=== PATIENT | female | born 1990 | race Caucasian/White ===

== ENCOUNTER 2020-05-17 20:59 | Emergency (ER) | payer SELFPAY ==
[2020-05-17 21:10] VITALS: BP 135/90; PULSE 69; RESP 14; TEMP 37; O2SAT 98
--- NOTE | 2020-05-17 21:11 | ED.GENADUL_ITS ---
Discharge Plan Disposition Patient Disposition: HOME Condition: Good Discharge Details Chief Complaint: DentalOral Clinical Impression: Dental infection Primary Care Provider: None,None ED Provider: Jose Bustamante Meds and New Rx's Prescriptions: New HurriCaine 20 % Aerosol,Mina 1 applic topical DIRECTED Qty: 57 RF: 0 amoxicillin-pot clavulanate 875-125 mg tablet 1 tab PO BID Qty: 20 RF: 0 Continued multivitamin [Daily Multi-Vitamin] 1 EACH tablet 1 tab PO DAILY RF: 0 Changed ibuprofen 200 MG capsule 600 mg PO Q8H PRNQty: 0 RF: 0 acetaminophen [Mapap Extra Strength] 500 MG tablet 1,000 mg PO TID-QID PRN (Reason: Pain) 5 Days Qty: 60 RF: 0 Discharge Instructions Instructions: Dental Abscess (ED) Additional Instructions: Take antibiotic as directed. Alternate acetaminophen and ibuprofen as we discussed. Use the Hurricaine as directed to help with pain. Return to ED for fever, difficulty breathing, inability to swallow, worsening pain/swelling/redness of face. Follow-up with dentist for definitive treatment. Medical Decision Making Patient with dental infection and adjacent buccal cellulitis. No drainable a bscess appreciated intraorally. We will continue ibuprofen and acetaminophen for pain. Will start Augmentin. We will also have her use benzocaine gel to the gingival area to help with discomfort. She will need definitive care by dentistry. Return to ED for difficulty breathing, inability to swallow, fever, worsening facial swelling and pain. HPI General Date/Time Provider Initiated Documentation: 05/17/20 21:10 . Limitations to Documentation: no limitations . Information obtained by: patient and RN notes reviewed . HPI Narrative: Patient presents to ED with dental pain and facial swelling. Patient has known dental problems but has not had the insurance to be able to get it addressed. She reports toothache for the last couple of days with increased pain and no facial swelling today. She reports no fever. She reports no difficulty swallowing or breathing. She has been taking Tylenol and ibuprofen for pain. Related Data Home Medications Medication Instructions Recorded Confirmed multivitamin [Daily Multi-Vitamin] 1 tab PO DAILY 04/22/15 05/17/20 acetaminophen [Mapap Extra 1,000 mg PO TID-QID PRN 5 Days #60 05/17/20 05/17/20 Strength] tab amoxicillin-pot clavulanate 1 tab PO BID #20 tab 07/10/20 benzocaine [HurriCaine] 1 applic TOPICAL DIRECTED #57 gm 05/17/20 ibuprofen 600 mg PO Q8H PRN #0 cap 05/17/20 05/17/20 Previous Rx's Medication Instructions Recorded acetaminophen [Mapap Extra 1,000 mg PO TID-QID PRN 5 Days #60 05/17/20 Strength] tab amoxicillin-pot clavulanate 1 tab PO BID #20 tab 05/17/20 benzocaine [HurriCaine] 1 applic TOPICAL DIRECTED #57 gm 05/17/20 ibuprofen 600 mg PO Q8H PRN #0 cap 05/17/20 Allergies Allergy/AdvReac Type Severity Reaction Status Date / Time clindamycin AdvReac vomiting Unverified 05/17/20 21:14 Review of Systems Narrative: As documented in HPI otherwise negative as below. Const: no fever, chills, weakness Resp: no cough, SOB, pleuritic pain CV: no CP, diaphoresis, edema, syncope GI: no abdominal pain, nausea, vomiting, diarrhea Neuro: no headache, numbness, focal weakness, confusion [facility] Medical History No active medical problems (Acute) Surgical History S/P tubal ligation (Chronic) Social History Smoking/Tobacco Use Status: Current every day Tobacco Type: cigarettes Alcohol Intake: current Alcohol Intake frequency: a few times a month Drug use: Never Substance use type: does not use Do you feel safe at home: Yes Do you feel safe in your relationship?: Yes Exam Narrative Exam Narrative: Vitals: Afebrile with normal vitals and normal room air pulse ox. Const: WDWN female in NAD. HEENT: NC/AT. Left sided mandibular swelling/tenderness. No erythema or fluctuance. Significant decay of all molars with dental fractures present. No gingival abscess. No tongue or floor of mouth swelling/tenderness. Eyes: Normal conjunctiva and sclera. Neck: Supple. Trachea midline. Lungs: Normal respiratory effort. Neuro: A+O x 3. Normal speech, mentation, gait. Cranial nerves II - XII grossly intact. No gross motor or sensory deficit. Skin: Warm and dry without erythema.
[2020-05-17] MEDS: Amox. 875/Clav. 125, 2 TABS/BTL 1 TAB PO (21:37)
[2020-05-17] MEDS: Benzocaine 20% Gel 30 GM JAR MM (21:37)
== END 2020-05-17 21:35 | disposition home or self-care (01) ==
LOC: ER 22:06
PROVIDERS: Emergency Provider Emergency Medicine
DX: R22.0 Localized swelling, mass and lump, head (principal); K04.7 Periapical abscess without sinus; K12.2 Cellulitis and abscess of mouth
CPT/HCPCS: 99283

== ENCOUNTER 2021-01-28 16:24 | Outpatient (REF) | payer BC, SELFPAY ==
[2021-01-28 22:01] LABS: FREE T4 0.99 ng/dL (0.76-1.46); Glucose 96 mg/dL (74-106); Hemoglobin A1C 4.7 % (<5.7)
== END 2021-01-28 16:25 | disposition home or self-care (01) ==
LOC: NCHCN 16:24
PROVIDERS: PCP Internal Medicine; Visit Provider Internal Medicine
DX: E03.9 Hypothyroidism, unspecified (principal); Z13.1 Encounter for screening for diabetes mellitus
CPT/HCPCS: 82947; 83036; 84439; 84443

== ENCOUNTER 2021-08-13 15:57 | Emergency (ER) | payer BC, SELFPAY ==
[2021-08-13 16:01] VITALS: BP 134/94; PULSE 82; RESP 20; TEMP 37.3; O2SAT 100
--- NOTE | 2021-08-13 16:15 | ED.GENADUL_ITS ---
Discharge Plan Disposition Patient Disposition: HOME Condition: Good Discharge Details Clinical Impression: Dental infection Primary Care Provider: Jared Samuel ED Provider: Kristin Mcdonald Home Meds and New Rx's Prescriptions: New amoxicillin-pot clavulanate [Augmentin] 875-125 mg tablet 1 tab PO BID Qty: 14 RF: 0 Continued multivitamin [Daily Multi-Vitamin] 1 EACH tablet 1 tab PO DAILY RF: 0 ibuprofen 200 MG capsule 600 mg PO Q8H PRNQty: 0 RF: 0 acetaminophen [Mapap Extra Strength] 500 MG tablet 1,000 mg PO TID-QID PRN (Reason: Pain) 5 Days Qty: 60 RF: 0 albuterol sulfate 90 mcg/actuation HFA aerosol inhaler 1 - 2 puff INHALATION PRN PRNRF: 0 budesonide-formoterol [Symbicort] 80-4.5 mcg/actuation HFA aerosol inhaler 1 puff INHALATION BID RF: 0 Discharge Instructions Instructions: Dental Abscess (ED) Additional Instructions: As discussed, I do not see definitive abscess. However, you do have evidence to suggest dental infection and localized swelling. Please encourage hydration. Tylenol and/or ibuprofen as needed for discomfort. Please take the antibiotics as prescribed. Even if symptoms improve, please take the entire course. Please keep upcoming appointment with hand for definitive care. If you develop fever/chills, increased swelling, difficulty breathing shortness of breath, difficulty swallowing or other new/worsening symptoms to seek care urgently once again. Please take probiotic while on the antibiotic. Referrals: Jared Samuel MD [Primary Care Provider] - Discharge Data Discharge Date/Time-TO BE ENTERED AT DEPARTURE: 08/13/21 16:43 Medical Decision Making Patient is a pleasant 31-year-old female presented with chief complaint of left lower dental pain. States the pain began yesterday. Noted swelling when she woke this morning. States she has been having difficulty with infection in this area. Has a dentist appointment in 3 weeks. She denies any fevers or chills. States that she has been on antibiotics multiple times for same thing. Denies status. Denies any headache. On exam, patient appears nontoxic. She does have swelling externally visualized to the left lower jawline. He generally, she did swelling along the buccal side. No lingual sided swelling. No swelling under the tongue. Posterior oropharynx is normal. No lymphadenopathy. Patient does not appear systemically ill. She is afebrile. Patient I discussed treatment options. She is fairly swollen. Questioning if she may be developing an abscess although I am not appreciating any significant area of fluctuance she does have a fairly substantial amount of swelling near the #21 2. She states that she has developed abscesses in the past. She would prefer attempted aspiration see if there was any pocket of fluid that may be opened. Patient I discussed risk/benefits as well as expected procedural steps associated with this. Procedure note: Area of maximal swelling was anesthetized topically with Hurricaine gel. This provided sufficient anesthesia. The area of maximal swelling was then aspirated with an 18-gauge needle. No purulent discharge was removed. Plan to treat for dental infection. He has done well with Augmentin in the past on chart review. I did encourage that she take a probiotic while on the antibiotic. Encourage hydration. Tylenol and ibuprofen as needed for discomfort. Return precautions were discussed. All of her questions and concerns were tested she is in agreement with plan. She will keep her upcoming appointment with dentist. HPI General Mode of arrival: ambulatory . Date/Time Provider Initiated Documentation: 08/13/21 16:06 . Limitations to Documentation: no limitations . Information obtained by: patient, RN notes reviewed and old records reviewed . History of Present Illness 31 year old F presents to the emergency department with the chief complaint of left lowerdental pain, described as mild, with intensity rated at 3. Quality is described as aching, and is localized to the mouth. Patient reports no radiation. Patient started experiencing this day(s) (1) and it has been constant. No relieving factors improve symptom(s), No exacerbating factors reported . Patient notes no other symptoms.; denies fever/chills, loss of appetite, nausea/vomiting and shortness of breath. Patient did receive the following treatments prior to arrival, none Related Data Home Medications Medication Instructions Recorded Confirmed multivitamin [Daily Multi-Vitamin] 1 tab PO DAILY 04/22/15 08/13/21 acetaminophen [Mapap Extra 1,000 mg PO TID-QID PRN 5 Days #60 05/17/20 08/13/21 Strength] tab ibuprofen 600 mg PO Q8H PRN #0 cap 05/17/20 08/13/21 albuterol sulfate 1 - 2 puff INHALATION PRN PRN 08/13/21 08/13/21 amoxicillin-pot clavulanate 1 tab PO BID #14 tab 08/13/21 [Augmentin] budesonide-formoterol [Symbicort] 1 puff INHALATION BID 08/13/21 08/13/21 Previous Rx's Medication Instructions Recorded acetaminophen [Mapap Extra 1,000 mg PO TID-QID PRN 5 Days #60 05/17/20 Strength] tab ibuprofen 600 mg PO Q8H PRN #0 cap 05/17/20 amoxicillin-pot clavulanate 1 tab PO BID #14 tab 08/13/21 [Augmentin] Allergies Allergy/AdvReac Type Severity Reaction Status Date / Time clindamycin AdvReac vomiting Unverified 08/13/21 16:04 General Stated Complaint: DentalOral ESA: 4 Review of Systems Constitutional Constitutional: Reports as per HPI, Denies chills, Denies fatigue, Denies fever(s) and Denies headache(s) Eyes Eyes: Denies change in vision and Denies irritation ENT Ears, Nose, Mouth, and Throat: Reports as per HPI, Reports dental pain, Denies dysphagia, Denies dizziness, Denies dry mouth, Denies ear discharge, Denies otalgia, Reports facial pain, Denies headache(s), Denies hoarseness, Denies lip swelling, Denies odynophagia and Denies sore throat Cardiovascular Cardiovascular: Denies dyspnea Respiratory Respiratory: Reports as per HPI, Denies cough and Denies dyspnea Gastrointestinal Gastrointestinal: Reports as per HPI, Denies dysphagia and Denies odynophagia Integumentary/Breasts Skin/Breast: Reports as per HPI, Denies erythema, Denies rash and Denies skin pain Neurologic Neurologic: Reports as per HPI, Denies dizziness and Denies headache(s) Endocrine Endocrine: Denies fatigue Allergic/Immunologic Allergic/Immunologic: Denies lip swelling PFSH Medical History No active medical problems Surgical History S/P tubal ligation Social History Smoking/Tobacco Use Status: Current every day Tobacco Type: cigarettes Smoking risk assessment performed?: Yes Alcohol Intake: current Alcohol Intake frequency: a few times a month Drug use: Daily Substance use type: marijuana Do you feel safe at home: Yes Do you feel safe in your relationship?: Yes Exam Const General: cooperative, healthy appearing, comfortable, no acute distress, well developed and well groomed Nutritional Appearance: average body habitus and well nourished Orientation: alert and awake [facility] Head: normal to inspection, normocephalic and atraumatic Ears: hearing grossly normal bilaterally, external ears normal and TM's normal bilaterally General nose exam: external nose normal and nares normal Face and sinus: sinuses nontender and face asymmetric Face images: 1. Area of swelling and discomfort. Poor dentition in this region. Not appreciate any focal area fluctuance. Appears generally swollen. No pain along the lingual side. Significant discomfort on the buccal side with palpation. No external discoloration, erythema or warmth. No lymphadenopathy. Patient does not appear systemically unwell. No swelling under the tongue. Posterior oropharynx is normal. Throat: posterior oropharynx normal, tonsils normal and uvula midline Eyes General: appearance normal, both eyes and all related structures Neck Neck: normal visual inspection, full ROM, no lymphadenopathy, supple and no anterior neck swelling Resp Effort & Inspection: normal respiratory effort, able to speak in complete sentences and no respiratory distress Auscultation: clear to auscultation bilaterally, no rales, no rhonchi and no wheezes Cardio Rate: regular rate Rhythm: regular rhythm Heart Sounds: S1 normal and S2 normal Skin General skin exam: no rashes or lesions noted Trauma: no lacerations or abrasions Neuro General: patient alert and patient awake Cognition: normal cognition Speech: speech normal Gait: normal gait Psych Appearance: grossly normal and well kempt Mental Status: mental status grossly normal Speech and Movement: speech and movement normal Course Vital Signs Vital signs: Vital Signs Temperature 37.3 C 08/13/21 16:01 Pulse 82 08/13/21 16:01 Respiratory Rate 20 08/13/21 16:01 Blood Pressure 134/94 H 08/13/21 16:01 Pulse Oximetry 100 08/13/21 16:01 Temperature 37.3 C 08/13/21 16:01 Temperature Source Skin 08/13/21 16:01 Pulse 82 08/13/21 16:01 Respiratory Rate 20 08/13/21 16:01 Respiratory Effort Non-Labored 08/13/21 16:06 Blood Pressure 134/94 H 08/13/21 16:01 Blood Pressure Position Sitting 08/13/21 16:01 Pulse Oximetry 100 08/13/21 16:01 Oxygen Delivery Method Room Air 08/13/21 16:01 Oxygen Flow Rate 0 08/13/21 16:01 Pain Level 3 08/13/21 16:01
== END 2021-08-13 16:43 | disposition home or self-care (01) ==
LOC: ER 16:41
PROVIDERS: Emergency Provider Physician Assistant; PCP Internal Medicine
DX: K04.7 Periapical abscess without sinus (principal)
CPT/HCPCS: 99283

== ENCOUNTER 2021-12-22 11:50 | Outpatient (REF) | payer BC, SELFPAY ==
--- NOTE | 2021-12-22 11:15 | PAPFT_PTH ---
PATIENT: Lesa Matt LOC: [facility] U#:[id number] AGE/SX: 31/F ROOM: RE12/22/[address]: Albaro Palmer : 1990 BED: DIS: 12/22/2021 SPEC #: [id number] RECD: 12/22/21 18:17 STATUS: SIM REQ #: [id number] TALISHA: 12/22/21 11:[address]: Albaro Palmer DEPT: [facility] Cytology RECD BY: Dacia Chahal ENTERED: 12/22/21 18:17 SP TYPE: PAPFT OTHR DR: Jared Samuel Tissues: 1 - CX/ENDOCX FOR PAP SMEARS Procedures: PAP THIN PREP/UVM Screening HPV DNA PROBE Comments: [id number]
== END 2021-12-22 11:51 | disposition home or self-care (01) ==
LOC: NCHCN 11:50
PROVIDERS: PCP Internal Medicine; Visit Provider Family Medicine
DX: Z12.4 Encounter for screening for malignant neoplasm of cervix (principal); Z11.51 Encounter for screening for human papillomavirus (HPV)
CPT/HCPCS: 88142; 87624

== ENCOUNTER 2024-07-04 12:57 | Emergency (ER) | payer BC, SELFPAY ==
[2024-07-04 13:02] VITALS: BP 122/75; PULSE 93; RESP 12; TEMP 38.9; O2SAT 96
--- NOTE | 2024-07-04 13:17 | ED.GENADUL_ITS ---
Discharge Plan Disposition Patient Disposition: Home Condition: Stable Discharge Details Clinical Impression: Streptococcal sore throat Primary Care Provider: Jared Samuel ED Provider: Becca Stack Home Meds and New Rx's Prescriptions: New penicillin V potassium 500 mg tablet 500 mg PO BID 10 Days Qty: 20 0RF Rx Instructions: Take one tablet by mouth twice daily x 10 days Continued multivitamin [Daily Multi-Vitamin] 1 EACH tablet 1 tab PO DAILY ibuprofen 200 MG capsule 600 mg PO Q8H PRNQty: 0 0RF acetaminophen [Mapap Extra Strength] 500 MG tablet 1,000 mg PO TID-QID PRN (Reason: Pain) 5 Days Qty: 60 0RF albuterol sulfate 90 mcg/actuation HFA aerosol inhaler 1 - 2 puff INHALATION PRN PRN Patient Comments: INHALE 1 TO 2 PUFFS EVERY 4 TO 6 HOURS NEEDED FOR WHEEZING budesonide-formoterol [Symbicort] 80-4.5 mcg/actuation HFA aerosol inhaler 1 puff INHALATION BID Patient Comments: INHALE 1 PUFF TWO TIMES A DAY Discharge Instructions Instructions: Strep Throat ED Additional Instructions: Positive for strep throat. Gargle with warm salt water up to 3 times daily for next 5 days. Take the antibiotic as prescribed twice daily with yogurt or probiotic. Please take Tylenol or Ibuprofen with food every 4-6 hours as needed for pain and swelling. Increase oral fluids. Thank you Stand Alone Forms: Work Release Referrals: Jared Samuel MD [Primary Care Provider] - 5 days Discharge Data Discharge Date/Time-TO BE ENTERED AT DEPARTURE: 07/04/24 13:26 HPI General Mode of arrival: ambulatory . Date/Time Provider Initiated Documentation: 07/04/24 13:09 . Limitations to Documentation: no limitations . Information obtained by: patient, RN notes reviewed and old records reviewed . HPI Narrative: 34 year old female presents to the ER with cc of sore throat which began yesterday. Associated with ear pain and fever. No significant PMHX. Related Data Home Medications ?Medication ?Instructions ?Recorded ?Confirmed multivitamin (Daily Multi-Vitamin 1 tab PO DAILY 04/22/15 07/04/24 tablet) acetaminophen 500 mg tablet (Mapap 1,000 mg (2 x 500 mg) PO TID-QID 05/17/20 07/04/24 Extra Strength) PRN Pain 5 days #60 tabs ibuprofen 200 mg capsule 600 mg (3 x 200 mg) PO Q8H PRN #0 05/17/20 07/04/24 caps albuterol sulfate 90 mcg/actuation 1 - 2 puff inhalation PRN PRN 08/13/21 07/04/24 aerosol inhaler budesonide-formoterol HFA 80 1 puff inhalation BID 08/13/21 07/04/24 mcg-4.5 mcg/actuation aerosol inhaler (Symbicort) penicillin V potassium 500 mg 500 mg PO BID strep throat 10 days 07/04/24 tablet #20 tabs Previous Rx's ?Medication ?Instructions ?Recorded acetaminophen 500 mg tablet (Mapap 1,000 mg (2 x 500 mg) PO TID-QID 05/17/20 Extra Strength) PRN Pain 5 days #60 tabs ibuprofen 200 mg capsule 600 mg (3 x 200 mg) PO Q8H PRN #0 05/17/20 caps penicillin V potassium 500 mg 500 mg PO BID strep throat 10 days 07/04/24 tablet #20 tabs Allergies Allergy/AdvReac Type Severity Reaction Status Date / Time clindamycin AdvReac vomiting Unverified 07/04/24 13:09 General Stated Complaint: Sorethroat ESA: 4 Review of Systems All systems reviewed & are unremarkable except as noted in HPI and below ENT Ears, Nose, Mouth, and Throat: Reports as per HPI, Reports otalgia and Reports sore throat Exam [facility] Head: normal to inspection Ears: hearing grossly normal bilaterally General nose exam: external nose normal Face and sinus: normal facial exam Mouth: oral mucosae normal Teeth and gingiva: dentition normal Throat: posterior oropharynx abnormal erythema and exudates Resp Effort & Inspection: normal respiratory effort and able to speak in complete sentences Auscultation: clear to auscultation bilaterally Course Vital Signs Vital signs: Vital Signs Temperature 38.9 C H 07/04/24 13:02 Pulse 93 H 07/04/24 13:02 Respiratory Rate 12 07/04/24 13:02 Blood Pressure 122/75 07/04/24 13:02 Pulse Oximetry 96 07/04/24 13:02 Temperature 38.9 C H 07/04/24 13:02 Temperature Source Oral 07/04/24 13:02 Pulse 93 H 07/04/24 13:02 Respiratory Rate 12 07/04/24 13:02 Respiratory Effort Normal, Non-Labored 07/04/24 13:06 Blood Pressure 122/75 07/04/24 13:02 Blood Pressure Position Sitting 07/04/24 13:02 Pulse Oximetry 96 07/04/24 13:02 Oxygen Delivery Method Room Air 07/04/24 13:02 Oxygen Flow Rate 0 07/04/24 13:02 Pain Level 9 07/04/24 13:02 Lab/Test Results Lab/Test Results: Laboratory Tests Range/Units 07/04/24 13:11 Monoscreen Cancelled POC Strep Test-MATHEW(Rapid) Start: 07/04/24 13:09 Freq: .Rapid Strep Test Status: Active Protocol: Document 07/04/24 13:13 SENTHIL (Rec: 07/04/24 13:13 SENTHIL [id number]) Strep test-MATHEW(Rapid)-POC POC-Strep test-MATHEW (Rapid) Positive POC-Strep test-MATHEW (Rapid) Positive Medical Decision Making 34 year old female presents to the ER with cc of sore throat which began yesterday. Associated with ear pain and fever. No significant PMHX. Positive rapid strep swab, Otero negative. Will treat with Penicillin for strep throat. Discussed home care, strict return instructions and follow up care. Instructed on Salt water gargles, and given 10 days of Pen VK 500 MG BID PO. This text was generated using [employer] dictation system, please disregard any oddities of phrase or misspellings. Quality:SDOH Health Related Social Needs: No Data to Display PFSH All Active Problems Streptococcal sore throat (Acute) Dental infection (Acute) S/P tubal ligation (Chronic) Medical History No active medical problems Social History Smoking/Tobacco Use Status: Current every day Tobacco Type: cigarettes Smoking risk assessment performed?: Yes Alcohol Intake: current Alcohol Intake frequency: a few times a month Drug use: Daily Substance use type: marijuana Housing: house Do you feel safe at home: Yes Do you feel safe in your relationship?: Yes PAWSS Have you Been Recently Intoxicated or Drunk Within the Last 30 days?: No Have you Ever Experienced Previous Episodes of Alcohol Withdrawal?: No Have you ever Experienced Withdrawal Seizures?: No Have you ever Experienced Delirium Tremens(DT)s?: No Have you ever undergone Alcohol Rehabilitation Treatment (i.e, inpt ot outpatient treatment programs)?: No Have you ever Experienced Blackouts?: No Have you ever Combined Alcohol with other Downers within the last 90 days?: No Have you ever Combined Alcohol with any other Substance of Abuse during the last 90 days?: No Positive Blood Alcohol level on Presentation? [PCS.BAL]: No Evidence of Increased Autonomic Activity (i.e. HR>120, tremor, sweating, agitation, nausea)?: No Result: 0
[2024-07-04] MEDS: Penicillin V POTASSIUM 500 MG TAB PO (13:22)
[2024-07-04 14:22] LABS: COVID-19 PCR Negative (Negative); Influenza A PCR Negative (Negative); Influenza B PCR Negative (Negative); RSV PCR Negative (Negative); Source Nasopharynx
== END 2024-07-04 13:26 | disposition home or self-care (01) ==
LOC: ER 13:25
PROVIDERS: Emergency Medicine; Emergency Provider Registered Nurse Emergency; PCP Internal Medicine
DX: J02.0 Streptococcal pharyngitis (principal); F17.210 Nicotine dependence, cigarettes, uncomplicated
CPT/HCPCS: 87637; 87880; 99283; 86308

== ENCOUNTER 2024-07-18 03:42 | Emergency (ER) | payer BC, SELFPAY ==
[2024-07-18 04:00] VITALS: BP 122/83; PULSE 84; RESP 14; TEMP 37; O2SAT 98
--- NOTE | 2024-07-18 05:43 | ED.GENADUL_ITS ---
Discharge Plan Discharge Details Chief Complaint: Sorethroat Primary Care Provider: Jared Samuel ED Provider: Lalita Sousa Home Meds and New Rx's Prescriptions: No Action multivitamin [Daily Multi-Vitamin] 1 EACH tablet 1 tab PO DAILY ibuprofen 200 MG capsule 600 mg PO Q8H PRNQty: 0 0RF acetaminophen [Mapap Extra Strength] 500 MG tablet 1,000 mg PO TID-QID PRN (Reason: Pain) 5 Days Qty: 60 0RF albuterol sulfate 90 mcg/actuation HFA aerosol inhaler 1 - 2 puff INHALATION PRN PRN Patient Comments: INHALE 1 TO 2 PUFFS EVERY 4 TO 6 HOURS NEEDED FOR WHEEZING budesonide-formoterol [Symbicort] 80-4.5 mcg/actuation HFA aerosol inhaler 1 puff INHALATION BID Patient Comments: INHALE 1 PUFF TWO TIMES A DAY HPI General Mode of arrival: ambulatory . Date/Time Provider Initiated Documentation: 07/18/24 04:35 . Limitations to Documentation: no limitations . Information obtained by: patient . HPI Narrative: 34yo F, previously healthy, recent strep throat treated with antibiotics which she has since completed, presenting with persistent sore throat. Continued pain, worse with swallowing. Now finding it difficult to drink liquids. Has been taking ibuprofen with minimal improvement. Otherwise in her usual state of health with no fevers, chills, rash, nasuea, vomiting, drooling, vocal changes, or other concerns. Related Data Home Medications ?Medication ?Instructions ?Recorded ?Confirmed multivitamin (Daily Multi-Vitamin 1 tab PO DAILY 04/22/15 07/18/24 tablet) acetaminophen 500 mg tablet (Mapap 1,000 mg (2 x 500 mg) PO TID-QID 05/17/20 07/18/24 Extra Strength) PRN Pain 5 days #60 tabs ibuprofen 200 mg capsule 600 mg (3 x 200 mg) PO Q8H PRN #0 05/17/20 07/18/24 caps albuterol sulfate 90 mcg/actuation 1 - 2 puff inhalation PRN PRN 08/13/21 07/18/24 aerosol inhaler budesonide-formoterol HFA 80 1 puff inhalation BID 08/13/21 07/18/24 mcg-4.5 mcg/actuation aerosol inhaler (Symbicort) Previous Rx's ?Medication ?Instructions ?Recorded acetaminophen 500 mg tablet (Mapap 1,000 mg (2 x 500 mg) PO TID-QID 05/17/20 Extra Strength) PRN Pain 5 days #60 tabs ibuprofen 200 mg capsule 600 mg (3 x 200 mg) PO Q8H PRN #0 05/17/20 caps Allergies Allergy/AdvReac Type Severity Reaction Status Date / Time clindamycin AdvReac vomiting Verified 07/18/24 04:03 General Stated Complaint: Sorethroat ESA: 5 Review of Systems Narrative: see HPI Exam Narrative Exam Narrative: General: Alert, well appearing, well nourished, in no acute distress. Head: Normocephalic, atraumatic Neck: Trachea midline, ?Neck supple. Tender left anterior lymphadenopathy. ENT: ?MMM.? No oropharygeal exudate. Uvula midline. Erythema and swelling to left tonsillar/peritonsiallar area without clear abscess. Cardiac: ?RRR, no murmurs appreciated Resp: No respiratory distress. CTAB. Abd: ?Soft, non-distended, nontender : ?No suprapubic tenderness. No CVA tenderness. Extremities: ?No deformities.? No peripheral edema. Neurologic: GCS 15. ? Moves all extremities freely against gravity Course Vital Signs Vital signs: Vital Signs Temperature 37 C 07/18/24 04:00 Pulse 84 07/18/24 04:00 Respiratory Rate 14 07/18/24 04:00 Blood Pressure 122/83 07/18/24 04:00 Pulse Oximetry 98 07/18/24 04:00 Temperature 37 C 07/18/24 04:00 Temperature Source Temporal Artery Scan 07/18/24 04:00 Pulse 84 07/18/24 04:00 Respiratory Rate 14 07/18/24 04:00 Respiratory Effort Normal 07/18/24 04:04 Blood Pressure 122/83 07/18/24 04:00 Blood Pressure Position Supine 07/18/24 04:00 Pulse Oximetry 98 07/18/24 04:00 Oxygen Delivery Method Room Air 07/18/24 04:00 Oxygen Flow Rate 0 07/18/24 04:00 Pain Level 6 07/18/24 04:00 Lab/Test Results Lab/Test Results: 07/18/24 03:56 Pharynx Group A Streptococcus Culture - Pending POC Strep Test-MATHEW(Rapid) Start: 07/18/24 04:00 Freq: Status: Active Protocol: Document 07/18/24 04:00 JANIYA (Rec: 07/18/24 04:00 JANIYA [id number]) Strep test-MATHEW(Rapid)-POC POC-Strep test-MATHEW (Rapid) Negative POC-Strep test-MATHEW (Rapid) Negative Medical Decision Making 34yo F, previously healthy, recent strep throat treated with antibiotics which she has since completed, presenting with persistent sore throat. Continued pain, worse with swallowing. Now finding it difficult to drink liquids. Systemically well. Not septic. Vital signs reassuring on arrival, on exam she does have some tender anterior cervical lymphadenoapthy and fullness in the left tonsillar/peristonsillar region without clear abscess. Given toradol, tylenol, and dexamethasone here; PO challenged and remains unable to tolerate fluids. Will get CT neck to evaluate for tonsillar/peritonsillar abscess. Low suspcion for ludwigs or deep space neck infection. Signed out to oncoming physician, plan to followup CT, reassess for ability to tolerate PO. Quality:SDOH Health Related Social Needs: No Data to Display PFSH All Active Problems Streptococcal sore throat (Acute) Dental infection (Acute) S/P tubal ligation (Chronic) Medical History No active medical problems Social History Smoking/Tobacco Use Status: Current every day Tobacco Type: cigarettes Smoking risk assessment performed?: Yes Alcohol Intake: current Alcohol Intake frequency: a few times a month Drug use: Daily Substance use type: marijuana Housing: house Do you feel safe at home: Yes Do you feel safe in your relationship?: Yes
[2024-07-18] MEDS: Acetaminophen Solution 650 MG/20.3 ML CUP PO (06:13)
[2024-07-18] MEDS: Lidocaine 2% Viscous 1 ML Solution 15 ML PO (06:14)
[2024-07-18] MEDS: Dexamethasone 10 MG/ML VIAL IM (06:14)
[2024-07-18] MEDS: Ketorolac 15 MG/ML VIAL IM (06:14)
--- NOTE | 2024-07-18 06:45 | DI.CT_ITS ---
Exam(s) CT NECK W EXAM: CT NECK W CLINICAL HISTORY: difficul swallowing, L anterior neck TTP. TECHNIQUE: Imaging Protocol: Axial computed tomography images with coronal and sagittal reformatted images were created and reviewed CONTRAST MATERIAL: Intravenous: Omnipaque 350 Contrast volume:100 ml contrast COMPARISON: No exams were available for comparison FINDINGS: Parotids: Normal. Submandibular glands: Normal. Thyroid gland: Normal. Lymph nodes: There are scattered lymph nodes seen along the level one to level three all measuring le ss than 8 mm in short axis diameter which are physiologic in nature. Carotids arteries: No significant stenosis or dissection. Vertebral arteries: No significant stenosis or dissection. Soft tissues: The floor the mouth is unremarkable. Bilateral tonsillar enlargement and enhancement consistent with tonsillitis. This causes some airway narrowing. Small focal abscess seen in the left tonsil which measures 12 millimeters. Some thicken ing in the left posterior pharyngeal tissues and aryepiglottic fold on the left. No retropharyngeal abscess. The adenoids are unremarkable. The epiglottis and vocal cords are within normal limits. Lungs: Images through both lung apices are unremarkable. Bones: Unremarkable. Visualized portions of the brain and orbits: Unremarkable. Sinuses and mastoids: Clear. IMPRESSION: Tonsillitis. 12 millimeter abscess in the left tonsil. RADIATION DOSE DELIVERED: 264.9mGy.cm Total DLP DATA REPOSITORY: All CT scans at this facility are submitted to the National Radiology Data Registry (NRDR) Dose Index Registry (DIR) with the [employer] ([employer]). RADIATION OPTIMIZATION: All CT scans at this facility use at least one of these dose optimization te chniques: automated exposure control; mA and/or kV adjustment per patient size (includes targeted exa ms where dose is matched to clinical indication); or iterative reconstruction.
--- NOTE | 2024-07-18 06:45 | NUR.NOTE ---
Pt stated she is in less pain, still unable to swallow, FPJ
[2024-07-18] MEDS: Normal Saline - Diluent 50 ML VIAL IJ (07:58)
--- NOTE | 2024-07-18 09:29 | ED.PROG_ITS ---
Date of service: 07/18/24 Time of Service: 09:29 [address] shows a 12 mm tonsillar abscess. She feels significantly better and has full range of motion of her mandible with no trismus. She swallowing and breathing normally. Her uvula is midline, and there is no large abscess that I feel I can safely I&D. Given how small it is I feel she can be discharged with ENT follow-up. She was given a one-time dose of ceftriaxone will prescribe her Augmentin along with prednisone for few more days. Return precautions given Quality:[facility] Health Related Social Needs: No Data to Display Discharge Plan Disposition Patient Disposition: Home Condition: Stable Discharge Details Clinical Impression: Abscess, peritonsillar Primary Care Provider: Jared Samuel ED Provider: Joel Padgett Home Meds and New Rx's Prescriptions: New prednisone 20 mg tablet 60 mg PO DAILY 4 Days Qty: 12 0RF amoxicillin-pot clavulanate 875-125 mg tablet 1 tab PO BID Qty: 20 0RF Continued multivitamin [Daily Multi-Vitamin] 1 EACH tablet 1 tab PO DAILY ibuprofen 200 MG capsule 600 mg PO Q8H PRNQty: 0 0RF acetaminophen [Mapap Extra Strength] 500 MG tablet 1,000 mg PO TID-QID PRN (Reason: Pain) 5 Days Qty: 60 0RF albuterol sulfate 90 mcg/actuation HFA aerosol inhaler 1 - 2 puff INHALATION PRN PRN Patient Comments: INHALE 1 TO 2 PUFFS EVERY 4 TO 6 HOURS NEEDED FOR WHEEZING budesonide-formoterol [Symbicort] 80-4.5 mcg/actuation HFA aerosol inhaler 1 puff INHALATION BID Patient Comments: INHALE 1 PUFF TWO TIMES A DAY Discharge Instructions Additional Instructions: You have a small tonsillar abscess that should be able to be treated with antibiotics. I placed you on referral to see Dr. Ragland or local ENT and you should get a call from their office within appointment time. If you feel more ill, have inability swallow liquids or difficulty breathing return to the emergency department for reevaluation You can take 1000 mg of acetaminophen every 6 hours and 400 mg of ibuprofen every 4 hours
[2024-07-18] MEDS: cefTRIAXone 2 GM/50 ML BAG IVPB (09:31)
== END 2024-07-18 10:06 | disposition home or self-care (01) ==
PROVIDERS: Emergency Provider Emergency Medicine; PCP Internal Medicine
DX: J36 Peritonsillar abscess (principal); F17.210 Nicotine dependence, cigarettes, uncomplicated
CPT/HCPCS: 00123; 36415; 70491; 96372; 96374; 99285; 87081; 99284; J0696; J1100; J1885

== ENCOUNTER 2025-01-14 11:02 | Emergency (ER) | payer BC, SELFPAY ==
[2025-01-14 11:07] VITALS: BP 120/82; PULSE 81; RESP 18; TEMP 37.2; O2SAT 98
--- NOTE | 2025-01-14 11:15 | DI.RAD_ITS ---
Exam(s) XR HAND RT COMPLETE EXAM: XR HAND RT COMPLETE CLINICAL HISTORY: MCPs 3-5 bruised, felt pop. TECHNIQUE: 2D digital imaging was performed. COMPARISON: No exams were available for comparison FINDINGS: 3 views There is an acute oblique and mildly displaced fracture of the 4th metacarpal confined to the diaphys is. No articular involvement.. No osseous lesions. No radiopaque foreign bodies. No gas in the so ft tissues. Bone density is normal. IMPRESSION: There is an acute mildly displaced oblique fracture in the diaphysis of the 4th metacarpal bone. No significant angulation evident. No articular involvement. DATA REPOSITORY: RADIATION DOSE DELIVERED:
--- NOTE | 2025-01-14 11:43 | DI.VRAD_ITS ---
PROCEDURE INFORMATION: Exam: XR Right Hand Exam date and time: 01/14/2025 11:33 AM Age: 34 years old Clinical indication: Other: Mcps 3-5 bruised, felt pop TECHNIQUE: Imaging protocol: Radiologic exam of the right hand. Views: 3 or more views. COMPARISON: No relevant prior studies available. FINDINGS: Bones/joints: Oblique and mildly displaced fracture of the diaphysis 4th metacarpal. No significant angulation. No articular involvement of the fractures. Soft tissues: Soft tissue swelling. IMPRESSION: Oblique and mildly displaced fracture of the diaphysis of the 4th metacarpal. Dictated and Authenticated by: Shabbir Damian MD. Orderin [facility]. Abraham Escobar MD
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
[2025-01-14 13:54] VITALS: BP 117/85; PULSE 72; RESP 14; TEMP 36.9; O2SAT 98
== END 2025-01-14 14:01 | disposition home or self-care (01) ==
PROVIDERS: Emergency Provider Emergency Medicine; PCP Nurse Practitioner Family
DX: S62.324A Displaced fracture of shaft of fourth metacarpal bone, right hand, initial encounter for closed fracture (principal); X58.XXXA Exposure to other specified factors, initial encounter; F17.210 Nicotine dependence, cigarettes, uncomplicated
CPT/HCPCS: 26600; 99283; 73130

== ENCOUNTER 2025-02-05 12:19 | Outpatient (CLI) | payer BC, SELFPAY ==
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
== END 2025-02-05 12:20 | disposition home or self-care (01) ==
LOC: DIORS 12:19
PROVIDERS: PCP Nurse Practitioner Family; Visit Provider Physician Assistant
DX: S62.325D Displaced fracture of shaft of fourth metacarpal bone, left hand, subsequent encounter for fracture with routine healing (principal); X58.XXXD Exposure to other specified factors, subsequent encounter
CPT/HCPCS: 73130

== ENCOUNTER 2025-02-23 11:18 | Outpatient (CLI) | payer BC, SELFPAY ==
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
== END 2025-02-23 11:19 | disposition home or self-care (01) ==
LOC: DIORS 11:19
PROVIDERS: PCP Nurse Practitioner Family; Visit Provider Physician Assistant
DX: S62.329A Displaced fracture of shaft of unspecified metacarpal bone, initial encounter for closed fracture (principal)
CPT/HCPCS: 73130